=== PATIENT | female | born 1980 | race Asian ===

== ENCOUNTER 2019-12-04 13:12 | Emergency (ER) | payer OTHER ==
[~2019-12-04] VITALS: Ht 170.2 cm; Wt 81.3 kg
--- NOTE | 2019-12-04 13:50 | NUR ---
PT WAS SENT FROM URGENT CARE FOR CO OF CP AND SOB. PAIN IN HER RIBS AND SHOULDER WHEN TAKING DEEP BREATHS. HAD RECENT SURGERY ON SHOULDER. PCP WAS CONCERNED ABOUT POSSIBLE PE. VSS STABLE.
[2019-12-04 14:36] LABS: BASOPHILS # (AUTO) 0.03 x10^3/uL (0-0.1); BASOPHILS % (AUTO) 0 % (0-1); EOSINOPHILS # (AUTO) 0.18 x10^3/uL (0-0.4); EOSINOPHILS % (AUTO) 2 % (1-7); LYMPHOCYTES % (AUTO) 16 % (22-44); MD NO; MEAN CORPUSCULAR HEMOGLOBIN 32.3 pg (27.0-34.8); MEAN CORPUSCULAR HGB CONC 34.4 g/dL (32.4-35.8); MEAN CORPUSCULAR VOLUME 93.9 fL (80-100); MEAN PLATELET VOLUME 7.4 fL (7.4-10.4); MONOCYTES # (AUTO) 0.55 x10^3/uL (0.2-0.8); MONOCYTES % (AUTO) 6 % (2-9); NEUTROPHILS # (AUTO) 6.73 x10^3/uL (1.8-6.8); NEUTROPHILS % (AUTO) 76 % (42-75); PLATELET COUNT 352 x10^3/uL (130-400); RED BLOOD COUNT 4.27 x10^6/uL (3.82-5.3); RED CELL DISTRIBUTION WIDTH 12.1 % (9.6-15.2)
[2019-12-04 14:38] LABS: ALBUMIN 3.3 g/dL (3.4-5.0); ANION GAP 5 mmol/L (5-15); CALCIUM 8.6 mg/dL (8.5-10.1); CHLORIDE 106 mmol/L (98-107); CREATININE 0.71 mg/dL (0.55-1.02)
--- NOTE | 2019-12-04 15:12 | NUR ---
PT RESTING. WAITING FOR LAB RESULT VSS
[2019-12-04] MEDS ORDERED: SODIUM CHLORIDE FLUSH 10ML SYR IVF ONE (15:30)
--- NOTE | 2019-12-04 15:41 | NUR ---
IV ESTABLISHED FOR CTA. PT HAS NO NEEDS AT THIS TIME
[2019-12-04] MEDS ORDERED: OMNIPAQUE 350 MG/ML, 100ML BOTTLE ONE (16:50)
[2019-12-04 17:28] VITALS: BP 118/75
--- NOTE | 2019-12-04 17:28 | NUR ---
Patient/Caregiver given discharge instructions and they have confirmed that they understand the instructions. Patient ambulatory with steady gait.
== END 2019-12-04 17:30 | disposition home or self-care (01) ==
LOC: ED 13:42
DX: R07.1 Chest pain on breathing (principal); R06.00 Dyspnea, unspecified
CPT/HCPCS: 36415; 71045; 71275; 80048; 82040; 84703; 85025; 85379; 93005; 99285; Q9967